=== PATIENT | male | born 1990 | race Two or more races ===

== ENCOUNTER 2016-12-23 01:59 | Emergency (ER) | payer SELFPAY ==
[~2016-12-23] VITALS: Ht 180.3 cm; Wt 81.6 kg
--- NOTE | 2016-12-23 02:24 | NUR ---
PATIENT OUT OF UNIT FOR CT SCAN VIA [facility]
--- NOTE | 2016-12-23 02:29 | NUR ---
CALLED [employer] NON EMERGENCY LINE. 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 WILL SEND POLICE TO INTERVIEW PATIENT ABOUT INCIDENT
[2016-12-23] MEDS ORDERED: ONDANSETRON 4 MG/2 ML VIAL ONE (02:30)
[2016-12-23] MEDS ORDERED: ONDANSETRON 4 MG/2 ML VIAL IM ONE (02:30)
--- NOTE | 2016-12-23 02:48 | NUR ---
[employer] INTO EVAL PATIENT
--- NOTE | 2016-12-23 03:30 | NUR ---
CLEANED WOUND ON BACK OF HEAD AND PLACED DRESSING ORDERED
--- NOTE | 2016-12-23 03:55 | NUR ---
Patient discharged to home in stable conditon WITH FRIEND TAKING PATIENT HOME. Written and verbal after care instructions given. Patient verbalizes understanding of instructions. WALKED OUT OF ER WITH STEADY GAIT. NO DISTRESS NOTED
[2016-12-23 03:56] VITALS: BP 122/75
== END 2016-12-23 03:57 | disposition home or self-care (01) ==
LOC: ER 02:03
DX: S01.01XA Laceration without foreign body of scalp, initial encounter (principal); W22.8XXA Striking against or struck by other objects, initial encounter; Y93.89 Activity, other specified; Y92.511 Restaurant or cafe as the place of occurrence of the external cause; Y99.9 Unspecified external cause status
CPT/HCPCS: 70450; 99284; A4217; A4663; J2405